=== PATIENT | female | born 1950 | race Caucasian/White ===

== ENCOUNTER 2018-05-20 06:48 | Inpatient (IN) ==
[2018-05-20] MEDS ORDERED: Sodium Chlor 0.9% Inj 500 ML IV.CONT ONE ×2 (07:30→07:45)
[2018-05-20] MEDS ORDERED: Metoprolol Tartrate 25 MG Tablet PO ONE ×2 (07:30→07:45)
[2018-05-20] MEDS ORDERED: Chlorhexidine Gluconate 2% 1 Pack (2 Cloths) TOPICAL ONE ×2 (07:30→07:45)
[2018-05-20] MEDS ORDERED: Chlorhexidine 4% Topical 120 APPLIC/120 ML Bottle TOPICAL SCH (07:30)
[2018-05-20] MEDS ORDERED: ceFAZolin 2 GM Premix Inj 2 GM/50 ML PIGGYBACK IV.SIG SCH (07:30)
[2018-05-20] MEDS ORDERED: SODIUM CHLOR 0.9% IV.SIG SCH ×2 (08:00→11:00)
[2018-05-20] MEDS ORDERED: TRANEXAMIC ACID IV.SIG SCH ×2 (08:00→11:00)
[2018-05-20] MEDS ORDERED: Sodium Chlor 0.9% Inj 80 ML, Bupivacaine Liposo PF 1.3% Inj 20 ML P-ARTICULR SCH ×2 (08:00)
[2018-05-20] MEDS ORDERED: fentaNYL Citrate Inj 100 MCG/2 ML Ampul ONE (08:22)
[2018-05-20] MEDS ORDERED: Bupivacaine Liposomal PF 1.3% Inj 20 ML Vial ONE (08:22)
[2018-05-20] MEDS ORDERED: Post-op Orders (for Pharmacy) OTHER STA (09:11)
[2018-05-20] MEDS ORDERED: Aluminum/Magnesium/Simethacone Susp 30 ML UDC PO PRN (09:11)
[2018-05-20] MEDS ORDERED: Acetaminophen 325 MG Tablet PO PRN (09:11)
[2018-05-20] MEDS ORDERED: Bisacodyl 10 MG Supp RECTAL PRN (09:11)
[2018-05-20] MEDS ORDERED: Tranexamic Acid Inj 0 MG in Sodium Chlor 0.9% Inj 100 ML IV.SIG ONE (09:11)
[2018-05-20] MEDS ORDERED: Morphine Inj 4 MG/ML Vial IV.PUSH PRN (09:11)
[2018-05-20] MEDS ORDERED: Famotidine PF Inj 20 MG/2 ML Vial ONE (09:29)
[2018-05-20] MEDS ORDERED: Propofol Inj 500 MG/50 ML Vial ONE (09:29)
[2018-05-20] MEDS ORDERED: Phenylephrine/NS 1000 MCG/10ML Syringe IV.PUSH ONE (09:51)
[2018-05-20] MEDS ORDERED: Glycopyrrolate Inj 1 MG/5 ML Syringe IV.PUSH ONE (09:51)
--- NOTE | 2018-05-20 11:54 | P.DCO ---
- Physical Therapy Physical Therapy: Gait training Knee: Total knee, Protocol: Right, Gait training, Full weight bearing Right Lower Extremity Weight Bearing: Weight bearing as tolerated Right Lower Extremity Range of Motion: Active ROM (Active, active assisted, passive range of motion. Range of motion goal is 0 degrees extension to 135 degrees of flexion, which was achieved in the operating room.) - Nursing Nursing: Dressing changes (Do not remove Dermabond Prineo (the tape that is directly on the wound).Leave the Optifoam dressing in place for 7 days. After this, daily dressing changes will be done taking care to avoid injuring or removing the Dermabond Prineo.) Dressing changes: Other (Do not remove Dermabond Prineo (the tape that is directly on the wound).Leave the Optifoam dressing in place for 7 days. After this, daily dressing changes will be done taking care to avoid injuring or removing the Dermabond Prineo.) - Case Management Consult Case Management Consult-Home Health: Yes - Certification Need for Home Health services: I have seen patient Rachell Rader on 05/20/18. My clinical findings support the need for the requested home health care services because: Need for Home Health Services: Limited ability to care for self, High risk of falls Homebound Certification: I certify that my clinical findings support that this patient is homebound because: Homebound Certification: Post-op weakness, Unsteady gait/balance, Unsafe to leave home unassisted
[2018-05-20] MEDS: Ketorolac Inj 30 MG/ML (IVP) Vial IV.PUSH SCH ×3 (12:00→22:33)
--- NOTE | 2018-05-20 12:00 | P.OP ---
- Preoperative Diagnosis (1) Primary osteoarthritis of right knee - Postoperative Diagnosis (1) Primary osteoarthritis of right knee Procedure: Right total knee arthroplasty using [place] Triathlon prosthesis (uncemented) Anesthesia: regional (Adductor canal block), local (Exparel), spinal Surgeon: Broderick Reina MD Senior Strategy Analyst: JUSTIN Buchanan Estimated blood loss (mL): 150 Tourniquet time (min): 0 Pathology: none sent Operation and Findings: Indications and Findings: This 67-year-old woman has a 3-year history of right knee pain progressively worsening especially until about 3 months ago. She is only able to ambulate short distances because of the pain. She has difficulty standing from a seated position. She does not have stairs. Treatment has included nonsteroidal anti-inflammatory agents, activity modification, exercise , ambulatory aids and analgesics. Physical findings showed degenerative varum with crepitation throughout the entire range of motion. There is medial laxity. There are palpable osteophytes. X-rays showed severe osteoarthritis with loss of articular cartilage to bone-on- bone particularly in the medial compartment, osteophytes in all compartments and subchondral sclerosis in the medial compartment. Operative findings: There was loss of articular cartilage to exposed subchondral bone in the medial compartment and some in the lateral compartment. There were osteophytes medially, laterally and in the patellofemoral compartment. There was grade 3 change in the patellofemoral compartment. The prosthesis used was a Jacob Triathlon prosthesis. The femur was a size 4, cruciate retaining, uncemented. The tibial baseplate was a size 4 Tritanium with a 9 mm, cruciate retaining, X3 polyethylene spacer. The patella was a size 35 mm asymmetric Tritanium backed. The patient was brought to the clean-air operating suite after administration of a regional anesthetic by adductor canal block. A spinal anesthetic was administered. The position was supine with a small bolster under the hip on the operative side. A pneumatic tourniquet was applied to the upper thigh. The lower extremity was prepped with alcohol, Hibiclens and ChloraPrep and draped in the usual manner with the knee draped free. An appropriate timeout procedure was carried out. An incision was made from about 3 fingerbreadths above the superior medial pole of patella down the tibial tubercle on the medial side. The incision was deepened through the subcutaneous tissue to the retinacular structures which were exposed medially and laterally. A medial retinacular incision was made from the superior medial pole of patella down the tibial tubercle and up into the quadriceps tendon, splitting it longitudinally in the medial one third. The patella was reflected. The infrapatellar fat pad was debulked. The anterior cruciate ligament was excised. Medial and lateral meniscectomies were initiated. The posterior surface of the patella was excised using an oscillating saw. A fenestration was made in the distal femur for an intramedullary referencing guide. The distal femoral cutting guide and jig were assembled for a 5, 8 mm cut. When this was fit into position,the cutting block was stabilized with pins. The jig was removed. The distal femoral cut was completed with the oscillating saw. The sizing guide was positioned in place along Whitesides line and the epicondylar axis and stabilized with pins. The femoral size was determined as noted above. The 4-in-1 cutting block was positioned in place. Anterior and posterior cuts were made followed by posterior and anterior chamfer cuts taking care to prevent injury to ligamentous structures. Osteophytes were trimmed from the distal femur. A bone plug was placed into the fenestration of the distal femur. The proximal tibia was exposed. The medial and lateral meniscectomies were completed. The proximal tibial cutting guide was positioned in place and stabilized for rotation. The depth of cut was verified with a stylus off the high side. The cutting block was stabilized with pins. The jig was removed. The depth of cut was verified and adjusted appropriately with the use of the spacer block. The proximal tibial cut was made with the oscillating saw taking care to prevent injury to neurovascular and ligamentous structures. Proximal tibial bone was removed. Local anesthetic was administered with Exparel in the posterior capsule. The tibial baseplate trial was positioned in place. After verifying the appropriate size, the base plate trial was positioned in place along with its spacer. The femoral component was impacted into place. The alignment was checked. The tibial baseplate was pinned in place on the tibia. Attention was directed to the patella. The patella drill guide was positioned in place for the appropriate sized patella. Patellar drilling was then carried out. The trial patella was positioned in place. The knee was taken through a range of motion which was easily 0 extension to 135 degrees. The patella trial was removed. The femoral drill holes were made. The femoral trials were removed. The tibial spacer was removed. The tibial punch was impacted through the proximal tibial punch guide. This was all removed followed by placement of the tibial drill guide. The tibial drill holes were made. The guide was removed. The cut ends of bone were cleaned with pulse lavage. The tibial baseplate was impacted into place and seated appropriately. The spacer was inserted. The the femoral component was impacted into place and seated appropriately. The patella component was seated with the patellar vice and tightened appropriately. The knee was taken through a range of motion which was comparable to the previous range of motion with excellent stability in flexion and extension and appropriate patellofemoral tracking. The remainder of the Exparel was injected throughout the knee as a local anesthetic. Drains were brought out the superior lateral aspect of the suprapatellar pouch. Wound closure commenced using #1 Vicryl interrupted figure -of-eight sutures and a #1 continuous barbed suture for the capsular and fascial structures, 2-0 Vicryl interrupted simple sutures with buried knots for the subcutaneous tissues and 4-0 Monocryl, continuous subcuticular closure for the skin. The wound was dressed with Dermabond Prineo followed by an OPTifoam AG dressing. Sterile soft roll with a cooling pad and Edwin bandage from the base of the toes to mid thigh were applied. Patient was transferred from the operating room to the recovery room in satisfactory condition having tolerated procedure well. Counts were correct. Specimens: None. Estimated blood loss: 150 mL
--- NOTE | 2018-05-20 12:48 | XR ---
EXAM DATE: 05/20/2018 12:46 PM EST AGE/SEX: 67 years / Female INDICATIONS: Post op right knee replacement. CLINICAL DATA: This is the patient's initial encounter. Patient reports that signs and symptoms have been present for 1 day and indicates a pain score of 0/10. MEDICAL/SURGICAL HISTORY: None. Total knee replacement, right. COMPARISON: No prior exams available for comparison. FINDINGS: Status post placement of a knee prosthesis. There is good position and alignment of the prosthesis wi th the bony structures. The bony structures are grossly intact. Postsurgical changes are noted. CONCLUSION: Good position and alignment on this postoperative study. Electronically signed by: Solomon Irizarry MD Board Certified Radiologist 05/20/2018 12:46 PM EST
[2018-05-20] MEDS: ceFAZolin Inj 1 GM in Sodium Chlor 0.9% Inj 100 ML IV.SIG SCH ×3 (18:16→22:33)
[2018-05-20] MEDS: Senna/Docusate Sodium 8.6/50 MG Tablet PO SCH (20:55)
[2018-05-20] MEDS ORDERED: Zolpidem Tartrate 5 MG Tablet PO PRN (21:00)
[2018-05-21] MEDS: ceFAZolin Inj 1 GM in Sodium Chlor 0.9% Inj 100 ML IV.SIG SCH (04:42)
[2018-05-21] MEDS: Ketorolac Inj 30 MG/ML (IVP) Vial IV.PUSH SCH ×2 (04:42→11:48)
[2018-05-21] MEDS: Levothyroxine 125 MCG Tablet PO SCH ×2 (04:43→06:17)
[2018-05-21 05:22] LABS: Hematocrit 34.6 % (35.0-46.0); Hemoglobin 11.8 gm/dL (11.6-15.3)
--- NOTE | 2018-05-21 06:04 | P.PNOP ---
Subjective Interval history: Postop day #1 She is doing well. She has virtually no pain. She is very happy with her result so far. Physical therapy reports that the ambulation distance was 95 feet. The range of motion was 0 degrees of extension to 88 degrees of flexion. Physical Exam Vital signs: Vital Signs 05/20/18 07:48 05/20/18 08:24 05/20/18 12:13 Temperature 97.7 F 97.5 F L Pulse Rate 72 73 77 Respiratory Rate 18 20 Blood Pressure 108/63 119/60 Pulse Oximetry 96 98 98 05/20/18 12:30 05/20/18 12:45 05/20/18 13:00 Temperature Pulse Rate 82 81 61 Respiratory Rate 20 18 20 Blood Pressure 102/52 L 111/55 L 113/57 L Pulse Oximetry 95 95 96 05/20/18 13:15 05/20/18 13:30 05/20/18 13:45 Temperature Pulse Rate 52 L 57 L 52 L Respiratory Rate 19 18 21 Blood Pressure 115/58 L 124/58 L 119/56 L Pulse Oximetry 96 97 98 05/20/18 14:00 05/20/18 15:00 05/20/18 16:00 Temperature Pulse Rate 86 78 96 H Respiratory Rate 20 20 20 Blood Pressure 120/60 130/64 100/52 L Pulse Oximetry 95 95 96 05/20/18 17:00 05/20/18 18:00 05/20/18 18:43 Temperature Pulse Rate 101 H 92 H Respiratory Rate 19 22 12 Blood Pressure 104/52 L 104/58 L Pulse Oximetry 96 96 05/20/18 19:00 05/20/18 22:45 05/20/18 23:18 Temperature 97.4 F L 97.3 F L Pulse Rate 85 102 H Respiratory Rate 22 18 17 Blood Pressure 117/56 L 104/57 L Pulse Oximetry 95 95 05/21/18 00:00 05/21/18 02:49 05/21/18 04:00 Temperature 97.5 F L 97.9 F Pulse Rate 70 63 Respiratory Rate 18 17 18 Blood Pressure 110/54 L 106/54 L Pulse Oximetry 95 96 Intake & Output 05/20/18 05/20/18 05/21/18 06:59 18:59 06:59 Intake Total 1800.29 / 1800.29 300 / 300 Output Total 150 / 150 140 / 140 Balance 1650.29 / 1650.29 160 / 160 Weight 82.9 kg 82.9 kg Intake: IV 158.29 / 158.29 300 / 300 Cyklokapron Inj 829 MG In NS 108.29 / 108.29 Inj 100 ML @ 200 mls/hr IV.SIG ONCE PADMINI Rx#:[id number] Ancef 2 GM Premix Inj 2 gm In 50 / 50 50 ml @ 100 mls/hr IV.SIG MARRIAGE AND FAMILY 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 The neurovascular status is intact. The dressing is dry and intact. Results - Labs CBC & Chem 7: 05/21/18 05:05 Laboratory Results - last 24 hr 05/20/18 05/21/18 08:00 05:05 Hgb 11.8 Hct 34.6 L Blood Type O Positive Blood Type Recheck Required Antibody Screen Negative - Imaging Impressions Knee X-Ray 05/20/18 09:10 CONCLUSION: Good position and alignment on this postoperative study. - Procedures Right total knee arthroplasty using Jacob Triathlon prosthesis (uncemented) on 05/20/2018 Assessment and Plan - Ortho Post Op Day # 1 - Problem List (1) Status post total right knee replacement not using cement Code(s): Z96.651 - Presence of right artificial knee joint Status: Acute Plan: Continue postop care and PT. - Assessment and Plan Condition: Good. Orthopedically stable. DVT prophylaxis: TEDs, aspirin, sequentials. Discharge plans: Home with home health care. An appointment was scheduled through the office. Prescriptions: 7.5/325; Patient is having significant pain caused by a total knee arthroplasty which will last more than 3 days. Trial of Tylenol has not helped. I believe that it is medically necessary to treat patients pain because it is affecting patients ability to participate in postoperative rehabilitation and perform activities of daily living in a comfortable and efficient manner. I have checked the [facility] database prior to completing the prescription.
[2018-05-21] MEDS: Senna/Docusate Sodium 8.6/50 MG Tablet PO SCH (08:13)
[2018-05-21] MEDS ORDERED: Non-Formulary Drug (Lisinopril-Hydrochlorothiazide [Lisinopril-Hydrochlorothiazide] 1 TAB) PO SCH (09:00)
[2018-05-21] MEDS ORDERED: Fenofibrate 145 MG Tablet PO SCH (09:00)
[2018-05-21] MEDS ORDERED: Lisinopril 20 MG Tablet PO SCH (09:00)
[2018-05-21] MEDS ORDERED: hydroCHLOROthiazide 25 MG Tablet PO SCH (09:00)
--- NOTE | 2018-05-21 12:47 | P.DS ---
Date of admission: 05/20/18 06:48 Primary care physician: Wesley Sousa DO Attending physician on discharge: Brodreick Reina Anticipated date of discharge: 05/21/18 Brief History from admission: This 67-year-old woman has had long-standing arthritis in her left knee, nonresponsive to conservative measures as detailed in the history and physical examination. This has limited her activities of daily living and interferes with her life. She has come for an elective total knee arthroplasty. Physical findings showed significant genu varum with palpable osteophytes, crepitation on motion and tenderness on motion. Graphic findings showed loss of articular cartilage to [id number] with osteophytes, subchondral sclerosis. DS: Diagnosis - Discharge Diagnosis (1) Status post total right knee replacement not using cement Status: Acute Diagnosis: Principal (2) Primary osteoarthritis of right knee Status: Chronic Diagnosis: Principal DS: Medications - Discharge Medications Prescriptions: hydrocodone-acetaminophen 1 tab PO Q4H PRN 7 Days #42 tab PRN Reason: Pain DS: Summary Hospital Course: The patient was admitted as noted above. The above noted operative procedure was carried out that day. Preoperatively prophylactic antibiotics were administered Ancef according to protocol. These were continued postoperatively. The patient also received tranexamic acid to help with hemostasis according to protocol. In the postanesthesia care unit mechanical methods of DVT prophylaxis in the form of NARA stockings and sequentials were initiated. Physical therapy was initiated on the day of surgery. On postoperative day #1 physical therapy continued. DVT prophylaxis with aspirin 81 mg was initiated at this time. The patient continued physical therapy throughout the hospitalization. The distance walked and range of motion improved throughout the hospitalization. The patient was discharged on postoperative day 1 with the disposition being to home health care. An appointment for follow-up was made prior to admission. - Time Spent with Patient Total time spent providing and/or coordinating discharge services: Less than 30 minutes - Quality: VTE Deep Vein Thrombosis/Pulmonary Embolism Present on Admission: No Exam Vital signs: Vital Signs 05/20/18 12:45 05/20/18 13:00 05/20/18 13:15 Temperature Pulse Rate 81 61 52 L Respiratory Rate 18 20 19 Blood Pressure 111/55 L 113/57 L 115/58 L Pulse Oximetry 95 96 96 05/20/18 13:30 05/20/18 13:45 05/20/18 14:00 Temperature Pulse Rate 57 L 52 L 86 Respiratory Rate 18 21 20 Blood Pressure 124/58 L 119/56 L 120/60 Pulse Oximetry 97 98 95 05/20/18 15:00 05/20/18 16:00 05/20/18 17:00 Temperature Pulse Rate 78 96 H 101 H Respiratory Rate 20 20 19 Blood Pressure 130/64 100/52 L 104/52 L Pulse Oximetry 95 96 96 05/20/18 18:00 05/20/18 18:43 05/20/18 19:00 Temperature 97.4 F L Pulse Rate 92 H 85 Respiratory Rate 22 12 22 Blood Pressure 104/58 L 117/56 L Pulse Oximetry 96 95 05/20/18 22:45 05/20/18 23:18 05/21/18 00:00 Temperature 97.3 F L 97.5 F L Pulse Rate 102 H 70 Respiratory Rate 18 17 18 Blood Pressure 104/57 L 110/54 L Pulse Oximetry 95 95 05/21/18 02:49 05/21/18 04:00 05/21/18 08:00 Temperature 97.9 F 97.5 F L Pulse Rate 63 59 L Respiratory Rate 17 18 20 Blood Pressure 106/54 L 113/55 L Pulse Oximetry 96 98 Intake & Output 05/20/18 05/21/18 05/21/18 18:59 06:59 18:59 Intake Total 1800.29 / 1800.29 360 / 360 Output Total 150 / 150 140 / 140 10 / 10 Balance 1650.29 / 1650.29 220 / 220 -10 / -10 Weight 82.9 kg 90.9 kg Intake: IV 158.29 / 158.29 300 / 300 Cyklokapron Inj 829 MG In NS 108.29 / 108.29 Inj 100 ML @ 200 mls/hr IV.SIG ONCE PADMINI Rx#:[id number] Ancef 2 GM Premix Inj 2 gm In 50 / 50 50 ml @ 100 mls/hr IV.SIG BODY SHOP ESTIMATOR PADMINI Rx#:[id number] Ancef Inj 1 GM In NS Inj 100 ML 300 / 300 @ 200 mls/hr IV.SIG Q6H PADMINI Rx #:[id number] Oral 60 / 60 Anesthesia Amount 1642 / 1642 Output: Estimated Blood Loss 150 / 150 Wound Drainage 140 / 140 10 / 10 # 1 Right Knee Hemovac 140 / 140 10 / 10 Other: # Voids 2 Date of Last Bowel Movement 05/19/18 Weight On Admission 82.9 kg Narrative: She is resting comfortably, supine in bed. The neurovascular status is intact. The dressing is dry and intact. Results Procedures completed during hospitalization: Right total knee arthroplasty using [place] Triathlon prosthesis (uncemented) on 05/20/2018 Labs on day of discharge: Labs from last 24 hours 05/21/18 05:05 Hgb 11.8 Hct 34.6 L - Impressions ITS Impressions Knee X-Ray 05/20/18 09:10 CONCLUSION: Good position and alignment on this postoperative study. Discharge Plan - Discharge Disposition Patient Disposition: Disch W/Home Health Service - Discharge Condition Condition: Stable - Discharge Order Discharge Orders: Discharge Order (Routine); Ordered 05/21/18 Ordered By: Broderick Reina - Discharge Details Anticipated Discharge Date: 05/21/18 - Physicians Team Primary Care Provider: Wesley Sousa Attending Provider: Broderick Reina Other Providers: [facility] ; Kings Frazier MD - Rxs /Orders / Referrals /Forms Prescriptions: New aspirin 81 mg Tablet,Chewable 81 mg PO BID RF: 0 hydrocodone-acetaminophen 7.5-325 mg Tablet 1 tab PO Q4H PRN (Reason: Pain) 7 Days Qty: 42 RF: 0 Continue carbidopa-levodopa 25-100 mg Tablet 1 tab PO TID fenofibrate 160 mg Tablet 160 mg PO DAILY levothyroxine [Synthroid] 125 mcg Tablet 125 mcg PO DAILY lisinopril-hydrochlorothiazide 20-12.5 mg Tablet 1 tab PO DAILY Referrals: Broderick Reina MD [Physician] - See Instructions ( Your appointment has been scheduled for 06/03/18 at 3:00 pm. If you cannot make this appointment, please call the office to reschedule ) Wesley Sousa DO [Primary Care Provider] - See Instructions ( Please call the physician's office to book the appointment to be seen by Primary Care. ) - Discharge Instructions Patient Printed Instructions: Hydrocodone/Acetaminophen (By mouth), Aspirin ( By mouth), How to Choose and Use a Walker (GEN), Knee Replacement (DC) - Post Discharge Care Plan Care Plan Goals: Discharge Care Plan Goals for Total Knee Replacement You have undergone knee replacement surgery. Your doctor replaced your painful joint with an artificial joint to relieve pain and restore movement. Here are some goals to help you heal well. Directions to Meet your Goals: 1. Activity & Exercises: * Take pain medicine as directed by your doctor. * Sit in chairs with arms. The arms make it easier for you to stand up or sit down. * Dont sit for more than 30 to 45 minutes at one time. * Nap if you are tired, but dont stay in bed all day. * Sleep with a pillow under your ankle, not your knee. Be sure to change the position of your leg during the night. * Wear the support stockings you were given in the hospital as directed by your surgeon. 2. Prevent Falls/Injury: The ceron to successful recovery is movement with walking and exercising your knee as directed by your doctor. * Arrange your household to keep the items you need handy. Keep everything else out of the way. * Remove items that may cause you to fall, such as throw rugs and electrical cords. * Use nonslip bath mats, grab bars, an elevated toilet seat, and a shower chair in your bathroom * Sit on a shower stool or chair when you shower to keep from falling. * Until your balance, flexibility, and strength improve, use a cane, crutches, a walker, handrails, or someone to help you. * Keep your hands free by using a backpack, claudia pack, apron, or pockets to carry things * Walk up and down stairs with support. Try one step at a time. Use the railing if possible. * Dont drive until your doctor says its OK. * Dont drive while you are taking opioid pain medicine. 3. Precautions: * Prevent infection. Any infection will need to be treated immediately. Call your doctor right away if you think you might have an infection. * Tell your dentist that you have an artificial joint and take antibiotics as prescribed before any dental work. * Tell all your healthcare providers about your artificial joint before any medical procedure. * Maintain a healthy weight. Get help to lose any extra pounds. Added body weight puts stress on the knee. * Your medications may include blood-thinning medicine to prevent blood clots or antibiotics to prevent infection-prevent any falls or cuts 4. Incision Care: * Prevent infection by washing your hands often. If an infection occurs, it will need to be treated right away. * Call your doctor right away if you think you may have an infection. Symptoms include a fever or an incision that leaks white, green, or yellow fluid. * Don't soak your incision in water until your doctor says its OK. This means no hot tubs, bathtubs, or swimming pools. * Follow your doctor's instructions for changing the dressing. * Dont rub the incision, or apply creams or lotions to it. * If you notice any redness or drainage around the bandage site, contact your surgeon's office immediately. 5. Follow-Up: Do Not miss your follow-up appointment. Keep up with all your appointments and yearly check ups When to call your doctor: Call your doctor right away if you have: Fever of 100.4F (38C) or higher, or as directed by your doctor Shaking chills Stiffness, or inability to move the knee Increased swelling in your leg Increased redness, tenderness, or swelling in or around the knee incision Drainage from the knee incision Increased knee pain Call 911: Call 911 right away if you have: Chest pain Shortness of breath Any pain or tenderness in your calf
== END 2018-05-21 14:14 | disposition home health service (06) | DRG 470 ==
LOC: HSDI 06:48 → N06 20:38
PROVIDERS: ADMIT Orthopaedic Surgery; ATTEND Orthopaedic Surgery
CPT/HCPCS: 73560; 85014; 85018; 86850; 86900; 86901; 94150; 97110; 97116; 97150; 97162; 97166; C1776; C9290; J0131; J0690; J1100; J1580; J1885; J2250; J2370; J2405; J2704; J2765; J3010; J7120